=== PATIENT | male | born 1985 | race Hispanic/Latino ===

== ENCOUNTER 2017-01-24 07:54 | Observation (INO) | payer OTHER ==
[2017-01-24 08:10] VITALS: RESP 20
[2017-01-24] MEDS ORDERED: DiphenhydrAMINE 50 mg/ml Inj IVP STA (08:10)
--- NOTE | 2017-01-24 08:11 | C.PDOC ---
History Of Present Illness 31 y/o male with Hx of Bipolar disorder, ADHD and anxiety presents to ED with complaints of having an allergic reaction since 4am this morning. Patient states he has not been able to sleep since 4am and then he reports that he began to feel anxious and have an itchy sensation in throat. Patient reports normal breathing and phonation. He denies rash. He reports hx of "Anaphylactic reaction" secondary to psychiatric medication that was treated with benadryl and ?epi. Patient denies new medication, new lotion, difficulty swallowing or breathing, new detergent, sob, chest pain or any other complaints at this time. Time Seen by Provider: 01/24/17 07:58 Chief Complaint (Nursing): Allergic Reaction History Per: Patient History/Exam Limitations: no limitations Onset/Duration Of Symptoms: Hrs Current Symptoms Are (Timing): Still Present Associated Symptoms: Itching Past Medical History Reviewed: Historical Data, Nursing Documentation, Vital Signs Vital Signs: Last Vital Signs Temp 98.1 F 01/24/17 08:02 Pulse 85 01/24/17 10:26 Resp 20 01/24/17 10:26 BP 111/67 01/24/17 10:26 Pulse Ox 98 01/24/17 13:13 - Medical History PMH: Anxiety, Bipolar Disorder, Depression Surgical History: Appendectomy, Tonsillectomy Family History: States: No Known Family Hx - Social History Hx Alcohol Use: No Hx Substance Use: No - Immunization History Hx Tetanus Toxoid Vaccination: No Hx Influenza Vaccination: No Hx Pneumococcal Vaccination: No Review Of Systems Except As Marked, All Systems Reviewed And Found Negative. Constitutional: Negative for: Fever, Chills ENT: Positive for: Throat Pain Cardiovascular: Negative for: Chest Pain Respiratory: Negative for: Shortness of Breath Musculoskeletal: Positive for: Leg Pain Skin: Negative for: Rash Neurological: Negative for: Weakness, Numbness Psych: Positive for: Anxiety Physical Exam - Physical Exam Appears: Well, Non-toxic, No Acute Distress, Other (anxious) Skin: Normal Color, Warm, No Rash Head: Atraumatic, Normacephalic Eye(s): bilateral: Normal Inspection, PERRL, EOMI Nose: Normal Oral Mucosa: Moist Tongue: Normal Appearing Lips: Normal Appearing Teeth: Normal Dentition Gingiva: Normal Appearing, No Erythema, No Swelling Throat: Normal, No Erythema, No Exudate Neck: Normal, Supple Chest: Symmetrical Cardiovascular: Rhythm Regular Respiratory: Normal Breath Sounds, No Rales, No Rhonchi, No Wheezing Gastrointestinal/Abdominal: Soft, No Tenderness, No Distention Back: Normal Inspection, No CVA Tenderness Extremity: Normal ROM Neurological/Psych: Oriented x3, Normal Speech (Speaking in full sentences), Normal Motor, Normal Sensation Gait: Steady ED Course And Treatment O2 Sat by Pulse Oximetry: 98 (RA) Pulse Ox Interpretation: Normal Medical Decision Making Medical Decision Making: Patient's physical exam is normal. No respiratory involvement. Appears nervous and anxious. Will give benadryl and pepcid and observe in ED 9:58AM Patient resting comfortably 10:33AM Reporting itchiness. Atarax ordered 12:30 Resting comfortably 1:11PM Patient has been monitored for 5.5 hours. No respiratory involvement and no worsening of symptoms. He reports improvement of symptoms and anxiety is resolved. Will dc ED OBSERVATION Discharge: Yes Date of observation admission: 01/24/17 Time of observation admission: 08:10 - Observation admission statement Patient is being placed in observation because:: Monitoring of worsening Allergic reaction symptoms - Goals of Observation Goals of observation are:: Continue Monitoring of respiratory status Disposition - Disposition Disposition: HOME/ ROUTINE Disposition Time: 08:10 Condition: FAIR - Clinical Impression Clinical Impression: Anxiety, Allergic reaction - Scribe Statement The provider has reviewed the documentation as recorded by the Kole Coleman All medical record entries made by the Claudetteiblilibeth were at my direction and personally dictated by me. I have reviewed the chart and agree that the record accurately reflects my personal performance of the history, physical exam, medical decision making, and the department course for this patient. I have also personally directed, reviewed, and agree with the discharge instructions and disposition.
[2017-01-24] MEDS ORDERED: DiphenhydrAMINE 50 mg/ml Inj ONE (08:14)
[2017-01-24 13:22] VITALS: BP 115/80; PULSE 83; TEMP 97.7; O2SAT 100
--- NOTE | 2017-02-05 20:04 | CARD ---
APPROVED REPORT EKG Measurement Heart [id number] <Conclusion> Sinus tachycardia Otherwise normal ECG
== END 2017-01-24 13:13 | disposition home or self-care (01) ==
LOC: C.ER 07:54 → C.9OBSV 08:10
PROVIDERS: ADMIT Emergency Medicine; ATTEND Emergency Medicine
DX: T78.49XA Other allergy, initial encounter (principal); X58.XXXA Exposure to other specified factors, initial encounter; F31.9 Bipolar disorder, unspecified; F41.9 Anxiety disorder, unspecified; F90.9 Attention-deficit hyperactivity disorder, unspecified type; Z87.892 Personal history of anaphylaxis
CPT/HCPCS: 96374; G0378; J1200